=== PATIENT | male | born 1980 | race Caucasian/White ===

== ENCOUNTER 2024-01-21 08:42 | Emergency (ER) | payer OTHER ==
[2024-01-21 09:12] VITALS: BP 135/92; PULSE 70; RESP 16; TEMP 97.6; BMI 23.7
[2024-01-21] MEDS ORDERED: ACETAMINOPHEN 500 MG TABLET (FP) ONE (09:36)
[2024-01-21] MEDS ORDERED: predniSONE 20 MG TABLET (UD) ONE (09:36)
[2024-01-21] MEDS: predniSONE 20 MG TABLET (UD) PO ONE (09:39)
[2024-01-21] MEDS: ACETAMINOPHEN 500 MG TABLET (FP) PO ONE (09:39)
== END 2024-01-21 10:37 | disposition home or self-care (01) ==
LOC: FER 08:42
DX: G51.0 Bell's palsy (principal)
CPT/HCPCS: 93005; 99283-25